=== PATIENT | male | born 1975 | race Caucasian/White ===

== ENCOUNTER → 2018-10-25 | Outpatient (CLI) | payer BC | LOC: LAB.O 08:17 | PROVIDERS: ATTEND Family Medicine | DX: Z00.00 Encounter for general adult medical examination without abnormal findings (principal); I10 Essential (primary) hypertension; E78.5 Hyperlipidemia, unspecified ==

== ENCOUNTER → 2019-05-21 | Outpatient (CLI) | payer BC ==
--- NOTE | 2019-05-21 16:33 | RAD ---
EXAM: XR Right Foot Complete, 3 or More Views CLINICAL HISTORY: FOOT PN TECHNIQUE: Frontal, lateral and oblique views of the right foot. COMPARISON: No relevant prior studies available. FINDINGS: Limitations: None. Bones/joints: Unremarkable. No acute fracture. No dislocation. Soft tissues: Unremarkable. Other findings: Intact lateral fibular plate and screws. IMPRESSION: No acute findings in the right foot. Electronically signed by: Angelique Cain MD 05/21/2019 4:31 PM CDT
== END ==
LOC: LAB.O 13:43
PROVIDERS: ATTEND Family Medicine
DX: M79.671 Pain in right foot (principal); E34.9 Endocrine disorder, unspecified; R53.83 Other fatigue; R68.82 Decreased libido; E11.9 Type 2 diabetes mellitus without complications; E78.5 Hyperlipidemia, unspecified

== ENCOUNTER 2020-02-28 11:00 | Day surgery (SDC) | payer BC ==
[~2020-02-28 11:00] MED LIST: LIDOCAINE 1% 10 ML VIAL INJ ONE; PROPOFOL 200 MG/20 ML VIAL IV ONE
[2020-02-28] MEDS ORDERED: ONDANSETRON INJ 4 MG/2 ML VIAL ONE (12:36)
[2020-02-28] MEDS ORDERED: ONDANSETRON INJ 4 MG/2 ML VIAL IV ONE (12:38)
[2020-02-28] MEDS ORDERED: FAMOTIDINE 20 MG TAB ONE (12:44)
[2020-02-28] MEDS ORDERED: FAMOTIDINE 20 MG TAB PO ONE (12:47)
[2020-02-28] MEDS ORDERED: ALUMINUM & MAGNESIUM HYDROXIDE 30 ML UD ONE (12:57)
[2020-02-28] MEDS ORDERED: ALUMINUM & MAGNESIUM HYDROXIDE 30 ML UD PO ONE (13:00)
--- NOTE | 2020-02-28 13:07 | OP ---
DATE OF PROCEDURE: 02/28/20 PREOPERATIVE DIAGNOSIS: 1. Epigastric pain. 2. Reflux. POSTOPERATIVE DIAGNOSIS: 1. Gastritis. PROCEDURE: 1. EGD with biopsy. SURGEON: Michael Obando MD ANESTHESIA: General. FINDINGS: Esophagus appeared normal. The body of the stomach was normal. There was no significant hiatal hernia. There was some gastritis and duodenitis. There was a small polyp a the pylorus that did not look malignant. This was biopsied. Also, biopsies were taken for H. pylori. PROCEDURE: The endoscope was passed without difficulty in the esophagus. We entered to the stomach, insufflated and went to the pylorus and second portion of the duodenum. Upon withdrawal, there appeared to be a small amount of duodenitis. No ulcers were seen. In the antrum, there was watermelon type lines consistent with gastritis and a small inflammatory type polyp at the pylorus. Biopsy of this was taken as well as some tissue and then additional biopsy sent for H. pylori. Two small possible healed ulcers in the lesser curve of the antrum. Upon retroflexion, the body and fundus appeared normal. There was no evidence of hiatal hernia. Upon withdrawal of the scope and desufflation of the stomach, the GE junction appeared normal. There was significant esophagitis or erosions. The scope was completed. He tolerated the procedure and was taken to Recovery to be discharged. #[id number] MTDD
[2020-02-28 14:41] VITALS: O2SAT 90
[2020-02-28 14:55] VITALS: BP 111/64; TEMP 99.2
== END 2020-02-28 13:50 | disposition short-term general hospital (02) ==
LOC: AMB 11:00
PROVIDERS: ATTEND Surgery
DX: K31.7 Polyp of stomach and duodenum (principal); K29.70 Gastritis, unspecified, without bleeding; K29.80 Duodenitis without bleeding; E11.9 Type 2 diabetes mellitus without complications; I10 Essential (primary) hypertension; K21.9 Gastro-esophageal reflux disease without esophagitis; G47.30 Sleep apnea, unspecified; Z79.899 Other long term (current) drug therapy; Z79.1 Long term (current) use of non-steroidal anti-inflammatories (NSAID); Z79.84 Long term (current) use of oral hypoglycemic drugs; Z99.89 Dependence on other enabling machines and devices; Z91.030 Bee allergy status
CPT/HCPCS: 00731; 36416; 43239; 82948; J2405; J3490

== ENCOUNTER 2020-02-28 13:49 | Inpatient (IN) | payer BC ==
[2020-02-28] MEDS ORDERED: PANTOPRAZOLE SODIUM IV 40 MG VIAL IV ONE (14:05)
[2020-02-28] MEDS ORDERED: SODIUM CHLORIDE 0.9% (FLUSH) 10 ML SYG IV PRN ×2 (14:05→20:07)
[2020-02-28] MEDS ORDERED: SODIUM CHLORIDE 0.9% 1000ML 1,000 ML IVS ONE ×2 (14:05→20:37)
--- NOTE | 2020-02-28 14:06 | ED.PDOC ---
History of Present Illness - General Chief Complaint: Post Op Problems Stated Complaint: Heartburn, L flank pain, headache post op Time Seen by Provider: 02/28/20 13:55 Source: patient - History of Present Illness Initial Comments: 44-year-old male with past medical history of hypertension, GERD who is sent over from the PACU for chief complaint of epigastric pain and left flank pain, which began just after his EGD procedure prior to arrival here. Patient reports that he has been having diarrhea for the past 3 to 4 days, 2-3 episodes per day, initially was green in color but now more watery in nature. Thus he was scheduled for an EGD for evaluation which she had today just prior to arrival. Apparently during the procedure patient was only noted to have some evidence of gastritis and some biopsies were taken without complication. Reports when he woke up after his procedure he had new onset of symptoms of epigastric pain and left flank pain which were not present prior to the procedure. He reports the epigastric pain is constant, 6/10, radiates up his chest into the back of his throat, burning, no known exacerbating factors, was given Pepcid, Maalox, and Zofran 8 mg IV in the PACU without any relief. Reports the left flank pain is sharp, constant, 6/10 severity, radiates down the left lower back and into the left rib cage as well, worse with palpation and deep breathing. Denies any fevers, chills, coughing, urinary symptoms, leg swelling, headache, body aches, nausea, vomiting, constipation. Does report sore throat. No known recent exposure to COVID-19. Allergies/Adverse Reactions: Allergies NO KNOWN ALLERGY Allergy (Verified 09/08/13 11:07) Home Medications: Ambulatory Orders Ibuprofen 800 mg PO TID PRN #20 tab 03/14/15 Atorvastatin Calcium [Lipitor] 10 mg PO DAILY 02/28/20 Citalopram Hydrobromide 40 mg PO DAILY 02/28/20 Cyclobenzaprine HCl [Flexeril] 10 mg PO DAILY PRN 02/28/20 Hydrochlorothiazide 25 mg PO DAILY 02/28/20 Losartan Potassium 50 mg PO DAILY 02/28/20 Meloxicam 15 mg PO DAILY 02/28/20 Pantoprazole Sodium 40 mg PO DAILY 02/28/20 Scopolamine [Transderm-Scop] 1 mg TD COSME-OTH-DAY 02/28/20 metFORMIN XR [Glucophage XR] 1,000 mg PO DAILY 02/28/20 Review of Systems - Review of Systems Review of Systems: 02/28/20 14:44 As per HPI All other Systems: Reviewed and Negative Past Medical History (General) - Patient Medical History Hx Seizures: No Hx Stroke: No Hx Dementia: No Hx Asthma: No Hx of COPD: No Hx Cardiac Disorders: No Hx Congestive Heart Failure: No Hx Pacemaker: No Hx Hypertension: No Hx Thyroid Disease: No Hx Diabetes: Yes - GLUCOSE 118 Hx Gastroesophageal Reflux: Yes Hx Renal Disease: No Hx Cancer: No Hx of HIV: No Hx Hepatitis C: No Hx MRSA: No - Vaccination History Hx Tetanus, Diphtheria Vaccination: Yes Hx Influenza Vaccination: No Hx Pneumococcal Vaccination: No - Social History Hx Tobacco Use: Yes Hx Chewing Tobacco Use: No Hx Alcohol Use: Yes Hx Substance Use: No Hx Substance Use Treatment: No Hx Depression: No Hx Physical Abuse: No Hx Emotional Abuse: No Hx Suspected Abuse: No - Female History Patient : No Family Medical History - Family History Mother Family History: Unknown Physical Exam - Physical Exam General Appearance: Alert, No apparent distress Eye Exam: bilateral normal Ears, Nose, Throat: hearing grossly normal, normal ENT inspection, normal pharynx Neck: non-tender, full range of motion, supple, normal inspection Respiratory: no respiratory distress, no accessory muscle use, other - Diminished air movement throughout with bibasilar crackles, worse on the left side, no noted wheezing or rales Cardiovascular/Chest: normal peripheral pulses, regular rate, rhythm, no edema, no gallop, no JVD, no murmur Peripheral Pulses: radial,right: 2+, radial,left: 2+ Gastrointestinal/Abdominal: normal bowel sounds, non tender, soft, no organomegaly Back Exam: normal inspection, other - Back appears normal on inspection. 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, no motor/sensory deficits, alert, normal mood/affect, oriented x 3 Skin Exam: normal color, warm/dry Progress - Progress Progress: 02/28/20 14:46 Postoperative epigastric pain and left flank pain -Also with new onset acute hypoxia, resolved with nasal cannula oxygen at 2 L -Consider aspiration, pneumonia, ACS, PE, gastritis, acute pancreatitis, acute cholecystitis, UTI, kidney stone, other infectious etiology, COVID-19, strep, gastroenteritis/colitis, other -Obtain cardiac/abdominal work-up, lactate, urinalysis, respiratory panel, strep test -1 L normal saline bolus and Protonix 40 mg IV for pain 02/28/20 16:06 -Patient remained stable, feeling a little better -Labs revealed normal serum WBC 5800 without left shift or bandemia, lactate 1.8. Amylase slightly elevated to 306 but lipase is normal at 34. -CT scans of the chest, abdomen, and pelvis with IV contrast obtained which revealed bilateral pulmonary infiltrates, most significant in the left lower lobe of the lung suspicious for aspiration versus pneumonia. Findings also could be sales representative metals of COVID-19, which often has nonspecific CT findings. No other acute processes were noted. -Suspect aspiration pneumonitis most likely given his presentation without fever and without leukocytosis. However, as cannot rule out pneumonia will begin IV antibiotics with Rocephin at this time. His d-dimer was normal so PE is excluded. Troponin level also was negative. Patient will need to be admitted to the hospital given his acute hypoxia, which I suspect is due to his pneumonitis. We are currently awaiting his rapid COVID-19 test to help determine disposition. 02/28/20 16:51 -COVID-19 rapid testing is negative. -I spoke with Zuleyka Garza, hospitalist, who accepts the patient to her service for aspiration pneumonitis, possible community-acquired pneumonia, with acute hypoxia, and acute gastritis. The plan will be continued supplemental oxygen along with cardiac monitoring and IV antibiotics as well as pain control. Chong Baires MD Billing #[id number] 02/28/20 14:05 Sodium Chloride 0.9% (Flush) [Saline Flush Syringe] 10 ml IV PRN PRN 02/28/20 14:15 EKG STAT 02/28/20 15:00 RESPIRATORY PANEL 2 Stat 02/28/20 15:12 Hold Metformin x 48Hrs [id number] 02/28/20 16:05 [id number] SODIUM [Rocephin] 1 gm Sodium Chl 0.9% 50Ml Min-Bag+ [NS 50ml MINI-BAG+] 50 ml IVPB ONCE Laboratory Results - last 24 hr 02/28/20 02/28/20 02/28/20 14:10 14:10 14:16 WBC 5.8 RBC 5.27 Hgb 16.2 Hct 47.3 MCV 89.8 MCH 30.8 MCHC 34.3 RDW 12.7 Plt Count 187 MPV 8.6 Absolute Neuts (auto) 3.90 Absolute Lymphs (auto) 1.50 Absolute Monos (auto) 0.30 Absolute Eos (auto) 0.10 Absolute Basos (auto) 0.10 Neutrophils % 66.6 Lymphocytes % 25.5 Monocytes % 5.5 Eosinophils % 1.2 Basophils % 1.2 D-Dimer, Quantitative 292.0 Sodium Potassium Chloride Carbon Dioxide Anion Gap BUN Creatinine BUN/Creatinine Ratio Random Glucose Serum Osmolality Lactic Acid Calcium Total Bilirubin Direct Bilirubin Indirect Bilirubin AST ALT Alkaline Phosphatase Troponin I < 0.02 Serum Total Protein Albumin Amylase Lipase Urine Color Urine Appearance Urine pH Ur Specific [place] Urine Protein Urine Glucose (UA) Urine Ketones Urine Blood Urine Nitrite Urine Bilirubin Urine Urobilinogen Ur Leukocyte Esterase Urine RBC Urine WBC Ur Epithelial Cells Ur Transition Epith Cell Amorphous Sediment Urine Bacteria Urine Mucus Group A Strep Rapid 02/28/20 02/28/20 02/28/20 14:16 14:16 15:00 WBC RBC Hgb Hct MCV MCH MCHC RDW Plt Count MPV Absolute Neuts (auto) Absolute Lymphs (auto) Absolute Monos (auto) Absolute Eos (auto) Absolute Basos (auto) Neutrophils % Lymphocytes % Monocytes % Eosinophils % Basophils % D-Dimer, Quantitative Sodium 139 Potassium 3.9 Chloride 100 L Carbon Dioxide 29 Anion Gap 13.9 BUN 24 H Creatinine 1.47 H BUN/Creatinine Ratio 16.3 Random Glucose 164 H Serum Osmolality 285.2 Lactic Acid 1.8 Calcium 9.2 Total Bilirubin 0.9 Direct Bilirubin 0.2 Indirect Bilirubin 0.7 AST 57 H ALT 38 Alkaline Phosphatase 70 Troponin I Serum Total Protein 7.4 Albumin 4.2 Amylase 306 H* Lipase 34 Urine Color Urine Appearance Urine pH Ur Specific [place] Urine Protein Urine Glucose (UA) Urine Ketones Urine Blood Urine Nitrite Urine Bilirubin Urine Urobilinogen Ur Leukocyte Esterase Urine RBC Urine WBC Ur Epithelial Cells Ur Transition Epith Cell Amorphous Sediment Urine Bacteria Urine Mucus Group A Strep Rapid Positive 02/28/20 15:15 WBC RBC Hgb Hct MCV MCH MCHC RDW Plt Count MPV Absolute Neuts (auto) Absolute Lymphs (auto) Absolute Monos (auto) Absolute Eos (auto) Absolute Basos (auto) Neutrophils % Lymphocytes % Monocytes % Eosinophils % Basophils % D-Dimer, Quantitative Sodium Potassium Chloride Carbon Dioxide Anion Gap BUN Creatinine BUN/Creatinine Ratio Random Glucose Serum Osmolality Lactic Acid Calcium Total Bilirubin Direct Bilirubin Indirect Bilirubin AST ALT Alkaline Phosphatase Troponin I Serum Total Protein Albumin Amylase Lipase Urine Color Yellow Urine Appearance Clear Urine pH 5.5 Ur Specific [place] 1.020 Urine Protein Negative Urine Glucose (UA) Negative Urine Ketones Negative Urine Blood Negative Urine Nitrite Negative Urine Bilirubin Negative Urine Urobilinogen 0.2 Ur Leukocyte Esterase Negative Urine RBC 0-1 Urine WBC 1-3 Ur Epithelial Cells 1-3 Ur Transition Epith Cell 0-1 Amorphous Sediment 1+ Urine Bacteria Rare Urine Mucus Trace Group A Strep Rapid - EKG/XRAY/CT EKG: Sinus - Normal sinus rhythm, heart rate 80, no ST elevations or Q waves noted, axis normal, intervals normal, appears largely unchanged from 04/10/2016 EKG XRAY: chest - Scattered left-sided infiltrates, worse in the lower lobe, concerning for aspiration versus pneumonia per my read Departure - Departure Clinical Impression: Aspiration pneumonitis, Hypoxia Community acquired pneumonia Qualifiers: Laterality: left Lung location: lower lobe of lung Qualified Code(s): J18.9 - Pneumonia, unspecified organism Gastritis Qualifiers: Gastritis type: unspecified gastritis Chronicity: acute Gastritis bleeding: without bleeding Qualified Code(s): K29.00 - Acute gastritis without bleeding Time of Disposition: 16:50 Disposition: Admit Patient Condition: Fair Departure Forms: ED Discharge - Pt. Copy, Patient Portal Self Enrollment Referrals: Haroon Mejia MD [Primary Care Provider] - 1-2 Weeks Home Medications: Ambulatory Orders Ibuprofen 800 mg PO TID PRN #20 tab 03/14/15 Atorvastatin Calcium [Lipitor] 10 mg PO DAILY 02/28/20 Citalopram Hydrobromide 40 mg PO DAILY 02/28/20 Cyclobenzaprine HCl [Flexeril] 10 mg PO DAILY PRN 02/28/20 Hydrochlorothiazide 25 mg PO DAILY 02/28/20 Losartan Potassium 50 mg PO DAILY 02/28/20 Meloxicam 15 mg PO DAILY 02/28/20 Pantoprazole Sodium 40 mg PO DAILY 02/28/20 Scopolamine [Transderm-Scop] 1 mg TD COSME-OTH-DAY 02/28/20 metFORMIN XR [Glucophage XR] 1,000 mg PO DAILY 02/28/20 Decision To Admit - Decistion To Admit Decision to Admit Reason: Admit from ER Decision to Admit Date: 02/28/20 Decision to Admit Time: 16:51
--- NOTE | 2020-02-28 14:32 | RAD ---
EXAM DESCRIPTION: Chest x-ray,1 View CLINICAL HISTORY: 44 years Male, s/p EGD, epigastric and flank pain COMPARISON: Previous chest x-ray December 21, 2008 TECHNIQUE: AP portable chest. FINDINGS: Heart size is normal with normal pulmonary vascularity. Linear discoid atelectasis in left upper lobe with airspace infiltrate in the lingula and/or left lower lobe consistent with pneumonia. This is a new finding compared to the previous study. No pulmonary mass or worrisome nodule. No pneumothorax or pleural effusion. Bones are unremarkable. IMPRESSION: Patchy infiltrates in the left mid and lower lung zones. Electronically signed by: Mustapha Barros MD 02/28/2020 2:30 PM CDT
--- NOTE | 2020-02-28 15:57 | CT ---
EXAM DESCRIPTION: Abdomen/Pelvis w/Contrast CLINICAL HISTORY: postoperative epigastric pain and Left flank pain COMPARISON: None. TECHNIQUE: Postcontrast CT images of the abdomen and pelvis are obtained using standard imaging protocol. This exam was performed according to our departmental dose-optimization program, which includes automated exposure control, adjustment of the mA and/or kV according to patient size and/or use of iterative reconstruction technique . FINDINGS: Visualized lung bases show multiple alveolar densities and mild interstitial thickening in the left lower lobe. Liver is enlarged measuring 23.1 cm with heterogeneous decreased attenuation. No abnormal enhancing mass. Spleen, pancreas, adrenal glands, gallbladder are unremarkable. Mild scattered calcifications of the arterial vasculature. No nephrolithiasis. Normal cortical enhancement. No ureteral calcification or obstruction. Urinary bladder is poorly distended but unremarkable. Moderate prostate calcifications. The appendix is normal. Stomach is poorly distended but unremarkable. No small bowel obstruction or bowel wall thickening. Moderate scattered diverticuli of the descending to sigmoid colon without associated inflammatory changes or fluid collections. Mild groundglass attenuation in the mesentery with several borderline enlarged lymph nodes measuring maximum 14 mm short axis. Osseous structures show no aggressive bony lesions. No displaced rib fractures. Spondylitic changes of the spine are seen. IMPRESSION: Left lower lobe mostly alveolar infiltrate suggests pneumonia versus aspiration. Recommend follow-up until resolution. Colon diverticulosis without CT evidence of diverticulitis. Groundglass attenuation in the root of the mesentery with borderline enlarged lymph nodes could represent mesenteric paniculitis.. No other enlarged lymph nodes are seen in the abdomen or pelvis. Hepatomegaly and diffuse fatty infiltration of the liver is seen. Other findings as described in body of report. Electronically signed by: Pablo Kelly MD 02/28/2020 3:55 PM CDT
[2020-02-28] MEDS ORDERED: cefTRIAXone SODIUM 1 GM in SODIUM CHL 0.9% 50ML MIN-BAG+ 50 ML IVPB ONE (16:05)
--- NOTE | 2020-02-28 16:05 | CT ---
EXAM DESCRIPTION: Chest w/Contrast CLINICAL HISTORY: postoperative epigastric pain and Left flank pain COMPARISON: None. TECHNIQUE: Postcontrast CT images of the chest are obtained using standard imaging protocol. This exam was performed according to our departmental dose-optimization program, which includes automated exposure control, adjustment of the mA and/or kV according to patient size and/or use of iterative reconstruction technique . FINDINGS: Heart is mildly enlarged. No coronary artery calcifications. Thoracic aorta unremarkable. No pathologically enlarged mediastinal, hilar, or axillary lymphadenopathy seen. No pleural or pericardial effusion. Images are moderately degraded by breathing motion artifact. Lungs are mildly hypoaerated. Patchy areas of groundglass opacity are seen in the lungs bilaterally most pronounced in the left lung. Alveolar airspace densities with mild interstitial thickening is seen peripherally throughout the left lower lobe. Mild areas of interstitial thickening in the mid inferior, posterior aspect of the left upper lobe. Osseous structures show no aggressive bony lesions. Mild spondylitic changes of the spine are seen. IMPRESSION: Bilateral pulmonary infiltrates most significant in the left lung and predominantly left lower lobe compatible with pneumonia versus aspiration and/or atelectasis. Imaging features can be seen with COVID-19 pneumonia, though are nonspecific and can occur with a variety of infectious and noninfectious processes. No pleural effusion or pneumothorax. Findings in the upper abdomen are noted on CT of the abdomen from today. Electronically signed by: Pablo Kelly MD 02/28/2020 4:03 PM CDT
[2020-02-28] MEDS ORDERED: PROMETHAZINE HCL INJ 12.5 MG in SODIUM CHLORIDE 0.9% 50ML 50 ML IVPB ONE (16:30)
[2020-02-28] MEDS ORDERED: MORPHINE SULFATE INJ 10 MG/ML VIAL IV ONE ×3 (16:30→20:35)
--- NOTE | 2020-02-28 17:48 | HP ---
SUPERVISING PHYSICIAN: Michael Neumann M.D. CHIEF COMPLAINT: Left flank pain. HISTORY OF PRESENT ILLNESS: Mr. Galvan is a 44 year-old male patient that has a past medical history of hypertension and gastroesophageal reflux disease. He was actually sent from PACU after he had just had an esophagogastroduodenoscopy done complaining of some epigastric and left flank pain. It was reported during the procedure that the patient had some equal of gastritis with a biopsy taken without any complications. After the procedure was completed he had the onset of symptoms of gastric pain and left flank pain which apparently were not present prior to the procedure. Initially in the Emergency Room he was complaining of pain rating a constant 6/10 radiating up into his chest and his back. There were concerns initially that he may have aspirated during the EGD, however the patient endorses he has been having severe GERD symptoms and waking up in the middle of the night coughing and choking, and actually throwing up. His labs initially showed a white count of 5,800 without a left shift, but he was showing a fever on admission at 101. He had a CT of the chest in the Emergency Room that showed bilateral pulmonary infiltrates most significant in the left lower lobe compatible with pneumonia versus aspiration and/or atelectasis. He has been tested for COVID-19 and was positive prior to the procedure. Given his symptomology, other labs were completed, including amylase and lipase which did show a slight elevation of amylase at 306 with normal lipase. He does have a history of diabetes. His glucose was 154. Liver functions show just a slightly elevated AST at 57, troponin was less than 0.02. EKG in the Emergency Room showed sinus rhythm. No ST elevation or Q waves or T wave inversions. He was diagnosed with aspiration pneumonitis and some mild hypoxia. On initial presentation, vital signs showed he was satting in PACU and in the Emergency Room in the high 80s to low 90s on nasal cannula. He was also tested for Strep and was found to be Group A Strep positive. He was started on antibiotics initially with clindamycin and Rocephin, and has been placed in Observation for further evaluation and close monitoring. PAST MEDICAL HISTORY: 1. Gastroesophageal reflux disease. 2. Hypertension. 3. Diabetes mellitus. 4. Anxiety. 5. Obstructive sleep apnea which will be placed on CPAP. PAST SURGICAL HISTORY: Josue placed in the right leg. HOME MEDICATIONS: 1. Hydrochlorothiazide 25 mg daily. 2. Flexeril 10 mg p.r.n. 3. Citalopram 40 mg daily. 4. Lipitor 10 mg daily. 5. Metformin extended release 1,000 mg daily. 6. Scopolamine 1 mg every other day. 7. Pantoprazole 40 mg daily. 8. Meloxicam 15 mg daily. 9. Losartan daily 50 mg. ALLERGIES: NO KNOWN DRUG ALLERGIES. FAMILY HISTORY: Noncontributory to current admission. SOCIAL HISTORY: The patient lives in [place]. He is . He does drink alcohol on a rare occasion and is a nonsmoker. Does not use any illicit drugs. REVIEW OF SYSTEMS: CONSTITUTIONAL: Positive for some general malaise and fever, sore throat. HEENT: Positive for sore throat. Denies any headaches, vision changes or ear aches. RESPIRATORY: Some mild shortness of breath but denies any wheezing, but does have some history of coughing at night, especially with GERD. CHEST: As noted in history of present illness. ABDOMEN: Left flank pain. Denies any abdominal pains, nausea, vomiting, diarrhea or constipation. GENITOURINARY: Denies any dysuria, hematuria, polyuria. MUSCULOSKELETAL: Denies any arthralgias, joint swelling. SKIN: Denies any lesions, rashes or unexplained changes. NEUROLOGIC: Denies any headaches, vision changes, ataxia or seizures. HEMATOLOGIC: Denies any unexplained bleeding, bruising or any transfusion reactions. PHYSICAL EXAMINATION: VITAL SIGNS: In the Emergency Room, he had a temperature of 101, heart rate 105, blood pressure 132/88, satting 86 on room air, 92% on 2 liters nasal cannula. Blood pressure 132/88, respirations 22 to 26. GENERAL: The patient did not appear to be in any acute distress. He is alert, resting comfortably. HEENT: Tympanic membranes clear bilaterally. Oropharynx is pink with just mildly erythematous posterior pharynx. Tonsils look to be within normal size with no noted exudate. NECK: Supple, nontender with full range of motion. No jugular venous distention noted. CHEST: Lung sounds were diminished with some mild crackles heard on the left compared to the right but no obvious wheezing or rales. CARDIOVASCULAR: Regular rate and rhythm without any appreciable murmurs, gallops, or rubs. ABDOMEN: Soft, nontender. Positive bowel sounds. It was nondistended. BACK: He does have some flank tenderness noted to palpation of the lower back area to the left rib cage. EXTREMITIES: Without any edema, clubbing or cyanosis. NEUROLOGIC: He is alert and oriented times three. Cranial nerves II-XII are grossly intact. Facial features are symmetrical. Extraocular movements are within normal limits. There is no nystagmus noted. SKIN: Warm, pink and dry. RADIOLOGY: Initial chest x-ray in the Emergency Room showed patchy infiltrates in the left mid and lower lung zone. This was followed-up with both a CT of the abdomen and chest and pelvis with contrast per radiology interpretation on the CT of the chest was noted bilateral pulmonary infiltrates most significant in the left lung, predominantly left lower lobe compatible with pneumonia versus aspiration. Please see that full report for details. CT of the abdomen and pelvis per radiology interpretation again showed the left lower lobe mostly alveolar infiltrate suggestive of pneumonia versus aspiration. There was note of colonic diverticulosis without any CT evidence of diverticulitis and there was some groundglass attenuation in the root of the mesentery with borderline enlarged lymph nodes which could represent mesenteric panniculitis. There are no enlarged lymph nodes seen in the abdomen or pelvis. Some noted hepatomegaly and diffuse fatty infiltrate or the liver. Please see those full reports for details. ASSESSMENT: 1. Aspiration pneumonitis with developing pneumonia status post esophagogastroduodenoscopy. 2. Gastroesophageal reflux disease status post esophagogastroduodenoscopy with finding of mild gastritis and duodenitis. 3. Elevated amylase with left sided pain with the pancreas noted to be unremarkable on CT. Etiology uncertain, possibly just some mild pancreatitis prior to hospitalization, resolving. 4. Diabetes mellitus on oral therapy. 5. History of anxiety. 6. Obstructive sleep apnea utilizing CPAP. PLAN: Mr. Galvan is going to be placed in observation, just considering his symptomology post procedural EGD with concerns for aspiration pneumonitis versus developing pneumonia. He was started on Rocephin and clindamycin on initial admission. Made NPO and then advance to clear liquids in the morning. Follow his labs in the morning. Reassess with anticipation of length of stay being 1 to 2 days, possibly discharging later tomorrow on the 18. Until we can transition to outpatient management, he will be on insulin sliding scale per protocol. He is already on ulcer prophylaxis with Protonix. Will continue to monitor and treat as needed. [facility][id number] [facility]
[2020-02-28] MEDS ORDERED: LEVALBUTEROL NEBS 1.25 MG/3 ML VIAL NEB PRN (20:07)
[2020-02-28] MEDS ORDERED: ONDANSETRON INJ 4 MG/2 ML VIAL IV PRN (20:07)
[2020-02-28] MEDS ORDERED: ACETAMINOPHEN 325 MG TAB PO PRN (20:07)
[2020-02-28] MEDS ORDERED: DEXTROSE 50% 25 GM/50 ML SYG IV PRN (20:16)
[2020-02-28] MEDS ORDERED: PROMETHAZINE HCL INJ 25 MG in SODIUM CHLORIDE 0.9% 50ML 50 ML IVPB PRN (20:16)
[2020-02-28] MEDS ORDERED: GLUCAGON INJ 1 MG VIAL SUBCU PRN (20:16)
[2020-02-28] MEDS ORDERED: IV SET AND CAP CHANGE INJ INJ SCH (20:30)
[2020-02-28] MEDS ORDERED: SODIUM CHLORIDE 0.9% 1000ML 1,000 ML ONE (22:18)
[2020-02-28] MEDS ORDERED: CLINDAMYCIN IV 900MG 50 ML IVPB ONE (22:18)
[2020-02-28] MEDS: CLINDAMYCIN IV 900MG 900 MG in PREMIX BAG 1 BAG IVPB SCH (22:21)
[2020-02-28] MEDS: SUCRALFATE 1 GM/10 ML 1 GM UD PO SCH (22:22)
[2020-02-28] MEDS: SODIUM CHLORIDE 0.9% (FLUSH) 10 ML SYG IV SCH (22:22)
[2020-02-28] MEDS: INSULIN LISPRO 100 UNITS/ML PEN SUBCU SCH (22:23)
[2020-02-28] MEDS: MORPHINE SULFATE INJ 10 MG/ML VIAL IV PRN (23:12)
[2020-02-29] MEDS: MORPHINE SULFATE INJ 10 MG/ML VIAL IV PRN ×5 (02:33→20:44)
[2020-02-29] MEDS ORDERED: CLINDAMYCIN IV 900MG 50 ML IVPB ONE (04:04)
[2020-02-29] MEDS: CLINDAMYCIN IV 900MG 900 MG in PREMIX BAG 1 BAG IVPB SCH (04:06)
[2020-02-29] MEDS: SUCRALFATE 1 GM/10 ML 1 GM UD PO SCH ×4 (06:28→20:53)
[2020-02-29] MEDS: PANTOPRAZOLE SODIUM IV 40 MG VIAL IV SCH (06:28)
[2020-02-29] MEDS: INSULIN LISPRO 100 UNITS/ML PEN SUBCU SCH ×4 (07:51→21:42)
--- NOTE | 2020-02-29 08:06 | RAD ---
EXAM:Chest,2 Views CLINICAL INDICATION: Aspiration pneumonia COMPARISON: 02/28/2020 FINDINGS:Two views of the chest were obtained. The heart size is normal. The pulmonary vascularity is unremarkable. Streaky infiltrates are again noted in the left mid to lower lung without definite change from the previous study. There is no pneumothorax or pleural effusion. IMPRESSION: Stable left-sided infiltrates, suspicious for pneumonia. Electronically signed by: Esteban Mckenna MD 02/29/2020 8:04 AM CDT
[2020-02-29] MEDS: SODIUM CHLORIDE 0.9% (FLUSH) 10 ML SYG IV SCH ×2 (08:33→21:45)
[2020-02-29] MEDS: LEVALBUTEROL NEBS 1.25 MG/3 ML VIAL NEB SCH ×4 (08:54→20:00)
[2020-02-29] MEDS ORDERED: cefTRIAXone SODIUM 1 GM in SODIUM CHL 0.9% 50ML MIN-BAG+ 50 ML IVPB SCH (09:00)
[2020-02-29] MEDS: AMPICILLIN & SULBACTAM SODIUM 3 GM in SODIUM CHL 0.9% 100ML MINI-BAG 100 ML IVPB SCH ×3 (11:39→22:50)
[2020-02-29] MEDS: LOSARTAN POTASSIUM 25 MG TAB PO SCH (14:30)
[2020-02-29] MEDS: SUCRALFATE 1 GM TAB PO SCH ×2 (16:33→20:43)
[2020-02-29] MEDS ORDERED: ATORVASTATIN 10 MG TAB ONE (20:37)
[2020-02-29] MEDS: SODIUM CHLORIDE 0.9% 1000ML 1,000 ML IVS PRN (21:39)
[2020-03-01] MEDS ORDERED: SODIUM CHLORIDE 0.9% (FLUSH) 10 ML SYG ONE (01:44)
[2020-03-01] MEDS: MORPHINE SULFATE INJ 10 MG/ML VIAL IV PRN ×2 (01:45→08:32)
[2020-03-01] MEDS: AMPICILLIN & SULBACTAM SODIUM 3 GM in SODIUM CHL 0.9% 100ML MINI-BAG 100 ML IVPB SCH ×2 (05:24→11:47)
[2020-03-01] MEDS: PANTOPRAZOLE SODIUM IV 40 MG VIAL IV SCH (06:00)
[2020-03-01] MEDS: SODIUM CHLORIDE 0.9% 1000ML 1,000 ML IVS PRN (06:04)
[2020-03-01] MEDS: SUCRALFATE 1 GM TAB PO SCH ×2 (06:29→11:47)
[2020-03-01] MEDS ORDERED: metFORMIN XR 500 MG TAB.ER.24 PO SCH (07:30)
[2020-03-01] MEDS: INSULIN LISPRO 100 UNITS/ML PEN SUBCU SCH ×2 (07:41→11:55)
[2020-03-01] MEDS: LOSARTAN POTASSIUM 25 MG TAB PO SCH (08:33)
[2020-03-01] MEDS: SODIUM CHLORIDE 0.9% (FLUSH) 10 ML SYG IV SCH (08:35)
[2020-03-01] MEDS ORDERED: CITALOPRAM HBR 20 MG TAB PO SCH (09:00)
[2020-03-01] MEDS ORDERED: hydroCHLOROthiazide 25 MG TAB PO SCH (09:00)
[2020-03-01] MEDS: LEVALBUTEROL NEBS 1.25 MG/3 ML VIAL NEB SCH ×2 (09:00→12:30)
--- NOTE | 2020-03-01 09:21 | PN ---
SUPERVISING PHYSICIAN: Michael Neumann MD DATE: 02/29/20 SUBJECTIVE: The patient is still having a little but of pain in his left ribcage area towards the bottom side. It is kind of nonspecific, seems like it is more of a insidious status pain, a little bit positional at that. His gastroesophageal reflux disease seems to be under control, he has not had anymore ingestion, therefore he does show developing pneumonitis, possible aspiration, but he is showing to be stable. OBJECTIVE: VITAL SIGNS: Temperature 97.9, pulse 64, blood pressure 120/75, respirations 15, oxygen saturation 92% on 2 liter nasal cannula. GENERAL: The patient is resting comfortably, does not appear to be in any acute distress. CHEST: Lung sounds are actually fairly clear, no obvious wheezing or rales. He does have a little bit of crackle continued on the left but nothing on the right. HEART: Regular rate and rhythm. ABDOMEN: Soft, non-tender, positive bowel sounds. EXTREMITIES: Without edema. NEUROLOGIC: He is alert and oriented x3. LABORATORY: Does show a leukocytosis at 11,000 but no current left shift. Chemistries show normal electrolytes, BUN 24, creatinine down to 1.44, blood sugar remains elevated but controlled between 142 and 157. Amylase this morning is down to 212, lipase remains normal. Liver functions all within normal limits except for an elevated bilirubin of 1.4. D-dimer on admission was normal at 292 and again, his group A strep was positive. RADIOLOGY: Chest x-ray this morning per radiology interpretation showed a stable left-sided infiltrate suspicious for pneumonia. ASSESSMENT: 1. Aspiration pneumonitis versus pneumonia status post EGD with history of gastroesophageal reflux disease. 2. Gastroesophageal reflux disease status post EGD again with findings on Dr. Obando's report for mild gastritis and duodenitis. 3. Elevated amylase with left sided pain with the pancreas noted to be unremarkable on CT. Etiology uncertain, possibly just some mild pancreatitis prior to hospitalization, resolving. 4. Diabetes mellitus on oral therapy. 5. Acute renal insufficiency, likely from recent imaging studies with multiple studies including imaging dye. Will continue to monitor closely. 5. History of anxiety. 6. Obstructive sleep apnea utilizing CPAP. PLAN: We will go ahead and continue with antibiotics but given the fact that he has good kidney function and is not allergic, I am going to go ahead and switch him to Unasyn. We will continue with aggressive pulmonary hygiene. He said he did have a little bit of sputum production which was more greenish in color this morning. Again, I would anticipate he will probably go home tomorrow. We will continue to treat and monitor and treat until that point. #[id number] [facility]
[2020-03-01 13:53] VITALS: BP 127/75; TEMP 98; O2SAT 94
[2020-03-01] MEDS ORDERED: AMOXICILLIN & POT CLAVULANATE 875 MG TAB PO ONE (14:57)
[2020-03-01] MEDS ORDERED: ATORVASTATIN 10 MG TAB PO SCH (21:00)
[2020-03-02] MEDS ORDERED: SCOPOLAMINE PATCH 1.5MG 1 EA TD SCH (09:00)
--- NOTE | 2020-03-17 16:30 | DS ---
SUPERVISING PHYSICIAN: Michael Neumann M.D. ADMISSION DIAGNOSIS: 1. Aspiration pneumonitis with developing pneumonia status post esophagogastroduodenoscopy. 2. Gastroesophageal reflux disease status post esophagogastroduodenoscopy with finding of mild gastritis and duodenitis. 3. Elevated amylase with left sided pain with the pancreas noted to be unremarkable on CT. Etiology uncertain, possibly just some mild pancreatitis prior to hospitalization, resolving. 4. Diabetes mellitus on oral therapy. 5. History of anxiety. 6. Obstructive sleep apnea utilizing CPAP. 7. Group A Strep pharyngitis. DISCHARGE DIAGNOSIS: 1. Aspiration pneumonitis versus pneumonia status post EGD with history of gastroesophageal reflux disease. 2. Gastroesophageal reflux disease status post EGD again with findings on Dr. Obando's report for mild gastritis and duodenitis. 3. Elevated amylase with left sided pain with the pancreas noted to be unremarkable on CT. Etiology uncertain, possibly just some mild pancreatitis prior to hospitalization, resolving. 4. Diabetes mellitus on oral therapy. 5. Acute renal insufficiency, likely from recent imaging studies with multiple studies including imaging dye. Will continue to monitor closely. 5. History of anxiety. 6. Obstructive sleep apnea utilizing CPAP. 7. Group A Strep pharyngitis. REASON FOR HOSPITALIZATION: Mr. Galvan is a 44 year-old male patient that has a past medical history of hypertension and gastroesophageal reflux disease. He was actually sent from PACU after he had just had an esophagogastroduodenoscopy done complaining of some epigastric and left flank pain. It was reported during the procedure that the patient had some equal of gastritis with a biopsy taken without any complications. After the procedure was completed he had the onset of symptoms of gastric pain and left flank pain which apparently were not present prior to the procedure. Initially in the Emergency Room he was complaining of pain rating a constant 6/10 radiating up into his chest and his back. There were concerns initially that he may have aspirated during the EGD, however the patient endorses he has been having severe GERD symptoms and waking up in the middle of the night coughing and choking, and actually throwing up. His labs initially showed a white count of 5,800 without a left shift, but he was showing a fever on admission at 101. He had a CT of the chest in the Emergency Room that showed bilateral pulmonary infiltrates most significant in the left lower lobe compatible with pneumonia versus aspiration and/or atelectasis. He has been tested for COVID-19 and was positive prior to the procedure. Given his symptomology, other labs were completed, including amylase and lipase which did show a slight elevation of amylase at 306 with normal lipase. He does have a history of diabetes. His glucose was 154. Liver functions show just a slightly elevated AST at 57, troponin was less than 0.02. EKG in the Emergency Room showed sinus rhythm. No ST elevation or Q waves or T wave inversions. He was diagnosed with aspiration pneumonitis and some mild hypoxia. On initial presentation, vital signs showed he was satting in PACU and in the Emergency Room in the high 80s to low 90s on nasal cannula. He was also tested for Strep and was found to be Group A Strep positive. He was started on antibiotics initially with clindamycin and Rocephin, and has been placed in Observation for further evaluation and close monitoring. LABORATORY STUDIES: White count on discharge showed to be 7,300, no left shift. Coagulation studies showed D-dimer 292. Chemistry showed normal electrolytes, normal creatinine at 1.4. Blood sugars range between 146 and 202, calcium 8.3. Liver functions on admission showed just a slightly elevated bilirubin at 1.4, otherwise within normal limits. Amylase was elevated at 306 initially and was showing to return to baseline at 212. Urinalysis was within normal limits. He had a Group A Strep rapid test that was positive. MICROBIOLOGY: Respiratory panel showed not detected for all viral and bacterial targets. Please see that report for details. RADIOLOGY: Chest x-ray per radiology interpretation initially on admission showed patchy infiltrates in the left mid and lower lung zones. Followup chest x-ray prior to discharge on the per radiology interpretation showed left sided stable infiltrate suspicious for pneumonia. He also had a CT of the chest and per radiology interpretation showed bilateral pulmonary infiltrates most significant in the left lung and left lower lobe compatible with pneumonia versus aspiration and atelectasis. He had an abdominal and pelvis CT with contrast that showed per radiology interpretation left lower lobe mostly alveolar infiltrate suggesting pneumonia versus aspiration. Colon diverticulosis without CT evidence of diverticulitis. There was note of ground glass attenuation in the root of the mesentery with borderline enlarged lymph nodes which could represent mesenteric panniculitis. Hepatomegaly and diffuse fatty infiltration of the liver was also seen. Please see those reports for details. HOSPITAL COURSE: Mr. Galvan was admitted after he had questionable aspiration with some pneumonitis versus pneumonia after he had an EGD. He was started on antibiotics for aspiration pneumonia initially with Rocephin and clindamycin and then changed to Unasyn. He was showing good clinical improvement and was showing to be stable. His vital signs showed he was afebrile on day of discharge with temperature 98, pulse 88, blood pressure 127/75, respirations 18, showing 94% on room air compared to admission where he was showing low 80s saturations initially prior to admission with 93% on 3 liters nasal cannula. He was provided with aggressive pulmonary hygiene and was showing good clinical improvement, and felt enough to continue with outpatient management to continue oral antibiotics. PLAN: Mr. Galvan was discharged to followup with Dr. Mejia and continue with all previous medications. He was to continue with diet as tolerated as instructed by Dr. Obando. He was to continue on antibiotics to include Augmentin 875 for 10 days as well as Guaifenesin and Albuterol. Condition on discharge was stable and improved. DISPOSITION: The patient is discharged home. Prescriptions written on discharge included: 1. Augmentin 875, #20. No refills. 2. Albuterol inhaler 2 puffs inhaled every 4 hours as needed, 1 inhaler. No refills. 3. Guaifenesin 600 mg every 12 hours, #28. No refills. Condition on discharge was stable and improved. DISPOSITION: The patient is discharged home. [facility][id number] [facility]
== END 2020-03-01 15:45 | disposition home or self-care (01) | DRG 179 ==
LOC: ER 13:49 → MS 17:44 → OBSVTOIN 17:44
PROVIDERS: ADMIT Nurse Practitioner Acute Care; ATTEND Nurse Practitioner Family
PROC: BW241ZZ Computerized Tomography (CT Scan) of Chest and Abdomen using Low Osmolar Contrast (ICD-10-PCS; principal; 2020-02-28)
PROC: BW211ZZ Computerized Tomography (CT Scan) of Abdomen and Pelvis using Low Osmolar Contrast (ICD-10-PCS; 2020-02-28)
DX: J69.0 Pneumonitis due to inhalation of food and vomit (principal); K21.9 Gastro-esophageal reflux disease without esophagitis; K29.00 Acute gastritis without bleeding; K29.80 Duodenitis without bleeding; E11.9 Type 2 diabetes mellitus without complications; N28.9 Disorder of kidney and ureter, unspecified; F41.9 Anxiety disorder, unspecified; G47.33 Obstructive sleep apnea (adult) (pediatric); J02.0 Streptococcal pharyngitis; R09.02 Hypoxemia; Z98.890 Other specified postprocedural states; I10 Essential (primary) hypertension; Z79.1 Long term (current) use of non-steroidal anti-inflammatories (NSAID); Z79.84 Long term (current) use of oral hypoglycemic drugs; Z79.899 Other long term (current) drug therapy

== ENCOUNTER → 2020-03-03 | Outpatient (CLI) | payer BC ==
--- NOTE | 2020-03-03 16:05 | RAD ---
EXAM DESCRIPTION: Chest,2 Views CLINICAL HISTORY: 44 years Male, PNEUMONIA COMPARISON: 29 February 2020 TECHNIQUE: PA/lateral FINDINGS: A marked interval improvement in aeration the chest is observed. The chest is near normal. The heart is within range of normal. No pleural fluid is seen. IMPRESSION: Marked interval clearing in this patient's previously observed left-sided pneumonia is observed. Electronically signed by: Wally Arango MD 03/03/2020 4:04 PM CDT
== END ==
LOC: LAB.O 13:38
PROVIDERS: ATTEND Family Medicine
DX: J18.9 Pneumonia, unspecified organism (principal); E11.9 Type 2 diabetes mellitus without complications; E78.5 Hyperlipidemia, unspecified; I10 Essential (primary) hypertension; K85.90 Acute pancreatitis without necrosis or infection, unspecified

== ENCOUNTER 2020-06-18 05:39 | Day surgery (SDC) | payer BC ==
[2020-06-18] MEDS ORDERED: MAGNESIUM SULFATE INJ 1 GM/2 ML VIAL ONE (07:00)
[2020-06-18] MEDS ORDERED: DEXAMETHASONE INJ 10 MG/ML VIAL ONE (07:00)
[2020-06-18] MEDS ORDERED: PROPOFOL 200 MG/20 ML VIAL IV ONE (07:00)
[2020-06-18] MEDS ORDERED: LACTATED RINGERS 1,000 ML ONE (07:03)
[2020-06-18] MEDS ORDERED: ONABOTULINUMTOXINA 50 UNIT IM ONE ×3 (09:16→09:58)
[2020-06-18] MEDS ORDERED: SODIUM CHLORIDE 0.9% 10 ML VIAL ONE (09:16)
[2020-06-18] MEDS ORDERED: BUPIVACAINE 0.5% W/EPI 30 ML VIAL INJ ONE ×3 (09:16→09:58)
[2020-06-18] MEDS ORDERED: SODIUM CHLORIDE 0.9% 10 ML VIAL INJ ONE ×3 (09:22→09:58)
[2020-06-18] MEDS ORDERED: METOCLOPRAMIDE HCL INJ 10 MG/2 ML VIAL IV ONE (09:26)
[2020-06-18] MEDS ORDERED: METOCLOPRAMIDE HCL INJ 10 MG/2 ML VIAL ONE (09:26)
[2020-06-18] MEDS ORDERED: MIDAZOLAM INJ 5 MG/5 ML VIAL ONE (09:39)
[2020-06-18] MEDS ORDERED: KETAMINE HCL 100 MG/ML VIAL ONE (09:45)
[2020-06-18] MEDS ORDERED: FAMOTIDINE INJ 10 MG/ML VIAL IV ONE (09:45)
[2020-06-18] MEDS ORDERED: DEXMEDETOMIDINE HCL 200 MCG/2 ML INJ IV ONE (09:45)
[2020-06-18] MEDS ORDERED: fentaNYL CITRATE INJ 50 MCG/ML 2 ML AMP ONE (09:48)
[2020-06-18] MEDS ORDERED: LACTATED RINGERS 600 ML IVS ONE (10:24)
[2020-06-18 13:00] VITALS: O2SAT 96
[2020-06-18 13:07] VITALS: BP 113/73; TEMP 97.7
--- NOTE | 2020-07-06 09:54 | OP ---
DATE OF PROCEDURE: 06/18/20 PREOPERATIVE DIAGNOSIS: 1. Anal pain. 2. Anal fissure. POSTOPERATIVE DIAGNOSIS: 1. Anal fissure. PROCEDURE: 1. Examination under anesthesia with Botox injection for anal fissure. SURGEON: Michael Obando MD. ANESTHESIA: General. FINDINGS: He had a posterior fissure. He had moderate uncomplicated hemorrhoids. No other abnormalities were seen. His sacrum and coccyx did appear to be anterior facing being the coccyx seemed very close to the anus, however, it did not feel unstable at all and no history of trauma. INDICATION: The patient had come to the office with complaints of anal pain. There was high suspicion for a fissure although with his body habitus, it was to see. It looked like he had one that was healing or had healed. He had a CT scan to rule out an intersphincteric abscess as there was a high suspicion, but that was negative. PROCEDURE: He was brought to the Operating Suite in prone jackknife position with gluteus cheeks taped apart. He was prepped and draped in sterile fashion. Externally, everything appeared normal. Digital rectal exam did not reveal any masses or fluctuance. On general anal speculum exam, there was a posterior fissure. As we manipulated, it did start to bleed a little bit. At this point, 50 units of Botox were drawn up and 0.25 cc in 25 units were used on either side, approximately 2 and 10 o'clock of the posterior midline fissure. Again, on examination, the coccyx was directed anteriorly, very close to the anus and I wonder if this could create any pain during defecation, however, he had no history of trauma, it felt stable and could just be a normal but unusual finding for him. Having treated the fissure with Botox, he was awakened and taken to Recovery to be discharged. [facility][id number] [facility]
== END 2020-06-18 11:25 | disposition home or self-care (01) ==
LOC: AMB 05:39
PROVIDERS: ATTEND Surgery
DX: K62.89 Other specified diseases of anus and rectum (principal); K60.2 Anal fissure, unspecified; I10 Essential (primary) hypertension; K21.9 Gastro-esophageal reflux disease without esophagitis; E11.9 Type 2 diabetes mellitus without complications; F32.9 Major depressive disorder, single episode, unspecified; E78.00 Pure hypercholesterolemia, unspecified; E66.9 Obesity, unspecified; Z68.41 Body mass index [BMI] 40.0-44.9, adult; Z79.84 Long term (current) use of oral hypoglycemic drugs; Z79.899 Other long term (current) drug therapy
CPT/HCPCS: 01991; 36415; 36416; 46270; 82948; J1100; J2250; J2765; J3010; J3475; J3490; J7120